=== PATIENT | male | born 1960 | race Caucasian/White ===

== ENCOUNTER 2021-12-03 23:24 | Emergency (ER) | payer OTHER ==
[~2021-12-03] VITALS: Ht 177.8 cm; Wt 131.5 kg
[2021-12-03] MEDS ORDERED: HUMALOG100 UNIT/2 (23:45)
[2021-12-03] MEDS ORDERED: KEPPRA500 MG (23:45)
[2021-12-03] MEDS ORDERED: COZAAR50 MG (23:46)
[2021-12-04] MEDS ORDERED: ACETAMINOPHEN650 M2 PO (06:18)
[2021-12-04] MEDS ORDERED: PEPCID AC20 MG PO (06:18)
[2021-12-04] MEDS ORDERED: LEVSIN0.125 MG PO (06:18)
[2021-12-04] MEDS ORDERED: INTESTINEX680 M1 PO (06:18)
[2021-12-04] MEDS ORDERED: CIPROFLOXACIN500 MG PO (06:18)
== END 2021-12-04 06:38 | disposition home or self-care (01) ==
LOC: ER 23:24
DX: R10.84 Generalized abdominal pain (principal); K80.10 Calculus of gallbladder with chronic cholecystitis without obstruction; R11.2 Nausea with vomiting, unspecified; I10 Essential (primary) hypertension; E11.9 Type 2 diabetes mellitus without complications; Z79.4 Long term (current) use of insulin; R19.7 Diarrhea, unspecified

== ENCOUNTER 2021-12-24 11:22 | Emergency (ER) | payer OTHER ==
[~2021-12-24] VITALS: Ht 185.4 cm; Wt 132.0 kg
[~2021-12-24 11:22] MED LIST: ACETAMINOPHEN650 M2 PO; CIPROFLOXACIN500 MG PO; COZAAR50 MG; HUMALOG100 UNIT/2; INTESTINEX680 M1 PO; KEPPRA500 MG; LEVSIN0.125 MG PO; PEPCID AC20 MG PO
[2021-12-24] MEDS ORDERED: LEVSIN/SL0.125 MG SL (15:46)
[2021-12-24] MEDS ORDERED: PROTONIX40 MG PO (15:46)
[2021-12-24] MEDS ORDERED: KETO10TA2 PO (15:46)
== END 2021-12-24 17:59 | disposition home or self-care (01) ==
LOC: ER 11:22
DX: R10.11 Right upper quadrant pain (principal); I10 Essential (primary) hypertension; E66.01 Morbid (severe) obesity due to excess calories; K80.20 Calculus of gallbladder without cholecystitis without obstruction; Z20.822 Contact with and (suspected) exposure to COVID-19; E11.65 Type 2 diabetes mellitus with hyperglycemia